=== PATIENT | female | born 1950 | race Caucasian/White ===

== ENCOUNTER 2022-06-01 08:48 | Inpatient (IN) | payer OTHER ==
[~2022-06-01] VITALS: Ht 154.9 cm; Wt 36.7 kg
[2022-06-01 08:52] VITALS: BP_SYST 128
[2022-06-01] MEDS ORDERED: methylPREDNISolone SOD SUCC/PF 62.5 MG/ML VIAL IVP ONE (09:00)
[2022-06-01] MEDS ORDERED: ALBUTEROL SULFATE 0.083% 2.5 MG/3 ML VIAL.NEB INH ONE ×2 (09:00→11:00)
[2022-06-01] MEDS ORDERED: DOXYCYCLINE HYCLATE 100 MG in D5W 100 ML IV ONE (09:00)
[2022-06-01] MEDS ORDERED: DOXYCYCLINE HYCLATE 100 MG VIAL IV ONE (09:10)
[2022-06-01 09:53] LABS: ANION GAP 2 (5-15); BASOPHILS # (AUTO) 0.1 K/uL (0.0-0.2); BASOPHILS % (AUTO) 1.2 % (0.0-2.0); CALCIUM 8.6 mg/dL (8.4-11.0); CHLORIDE 102 mmol/L (98-107); CREATININE 0.79 mg/dL (0.55-1.30); EOSINOPHILS # (AUTO) 0.1 K/uL (0.0-0.4); EOSINOPHILS % (AUTO) 1.5 % (0.0-4.0); GLUCOSE 86 mg/dL (70-99); HEMATOCRIT 39.7 % (36-48); LYMPHOCYTES # (AUTO) 1.5 K/uL (1.0-5.5); LYMPHOCYTES % (AUTO) 20.4 % (20.5-51.5); MEAN CORPUSCULAR VOLUME 95 fL (79.0-98.0); MONOCYTES # (AUTO) 0.6 K/uL (0.0-1.0); MONOCYTES % (AUTO) 8.6 % (1.7-9.3); NEUTROPHILS % (AUTO) 68.3 % (40.0-70.0); PLATELET COUNT (AUTO) 251 K/uL (130-430); POTASSIUM 3.6 mmol/L (3.5-5.1); RED CELL DISTRIBUTION WIDTH 16.1 % (9.0-15.0); UREA NITROGEN, BLOOD 12 mg/dL (8-21); WHITE BLOOD COUNT (AUTO) 7.3 K/uL (4.8-10.8)
[2022-06-01 10:01] LABS: GFR AFRICAN AMERICAN 93 mL/min (>90)
[2022-06-01 10:05] LABS: ALANINE AMINOTRANSFERASE 19 U/L (12-78); ALBUMIN 3.2 g/dL (3.4-4.8); ASPARTATE AMINOTRANSFERASE 23 U/L (10-37); TOTAL BILIRUBIN 0.5 mg/dL (0.0-1.0)
[2022-06-01] MEDS ORDERED: FUROSEMIDE 40 MG/4 ML VIAL IVP ONE (10:15)
[2022-06-01] MEDS ORDERED: FURO10VI27 IVP (13:44)
[2022-06-01] MEDS ORDERED: OXYCODONE/ACETAMINOPHEN 5-325 TABLET PO ONE (15:30)
[2022-06-01 15:57] VITALS: BP_SYST 129
[2022-06-01] MEDS ORDERED: HYDROcodone/ACETAMIN 5-325 MG TAB (NORCO/ VICODIN) PO PRN (16:30)
[2022-06-01] MEDS ORDERED: NALOXONE HCL 0.4 MG/ML AMP (NARCAN) IVP PRN ×2 (16:30)
[2022-06-01] MEDS ORDERED: ACETAMINOPHEN 325 MG TABLET PO PRN ×2 (16:30→17:00)
[2022-06-01] MEDS ORDERED: ONDANSETRON HCL 4 MG/2 ML VIAL IVP PRN (16:30)
[2022-06-01] MEDS: LORazepam 2 MG/ML VIAL IVP PRN (17:05)
[2022-06-01] MEDS: cefTRIAXone 1 GM IVPB PREMIX 50 ML IV SCH (18:05)
[2022-06-01] MEDS: AZITHROMYCIN 500 MG in NS 250 ML IV SCH (18:06)
[2022-06-01 18:48] VITALS: BP_SYST 129
[2022-06-01] MEDS: ALBUTEROL SULFATE 0.083% 2.5 MG/3 ML VIAL.NEB INH SCH ×2 (19:59→23:19)
[2022-06-01] MEDS: IPRATROPIUM BROM 0.5 MG/2.5 ML VIAL.NEB (ATROVENT) INH SCH ×2 (19:59→23:19)
[2022-06-01 20:00] VITALS: BP_SYST 118
[2022-06-01] MEDS: HYDROcodone/ACETAMIN 10-325 MG TAB PO PRN (20:57)
[2022-06-01] MEDS: METHYLPREDNISOLONE SOD SUCC 40 MG/ML VIAL IVP SCH (20:58)
[2022-06-01] MEDS: NORMAL SALINE 5 ML DISP.SYRIN IVF SCH (20:59)
[2022-06-01] MEDS ORDERED: NORMAL SALINE 5 ML DISP.SYRIN IVF SCH (22:00)
[2022-06-02] VITALS: BP_SYST 128
[2022-06-02] MEDS: ALBUTEROL SULFATE 0.083% 2.5 MG/3 ML VIAL.NEB INH SCH ×6 (03:18→23:13)
[2022-06-02] MEDS: IPRATROPIUM BROM 0.5 MG/2.5 ML VIAL.NEB (ATROVENT) INH SCH ×6 (03:18→23:13)
[2022-06-02 04:00] VITALS: BP_SYST 145
[2022-06-02] MEDS: HYDROcodone/ACETAMIN 10-325 MG TAB PO PRN ×2 (06:42→16:45)
[2022-06-02] MEDS: NORMAL SALINE 5 ML DISP.SYRIN IVF SCH ×3 (06:43→22:00)
[2022-06-02 08:00] VITALS: BP_SYST 131
[2022-06-02 08:16] LABS: BASOPHILS % (AUTO) 0.1 % (0.0-2.0); HEMATOCRIT 38.2 % (36-48); LYMPHOCYTES # (AUTO) 0.5 K/uL (1.0-5.5); LYMPHOCYTES % (AUTO) 8.2 % (20.5-51.5); MEAN CORPUSCULAR VOLUME 95 fL (79.0-98.0); MONOCYTES # (AUTO) 0.4 K/uL (0.0-1.0); MONOCYTES % (AUTO) 7.2 % (1.7-9.3); NEUTROPHILS # (AUTO) 4.9 K/uL (1.8-7.7); NEUTROPHILS % (AUTO) 84.5 % (40.0-70.0); PLATELET COUNT (AUTO) 260 K/uL (130-430); RED BLOOD CELL COUNT(AUTO) 4.04 MIL/uL (4.2-6.2); RED CELL DISTRIBUTION WIDTH 16.2 % (9.0-15.0); WHITE BLOOD COUNT (AUTO) 5.8 K/uL (4.8-10.8)
[2022-06-02 08:34] LABS: ALBUMIN 2.7 g/dL (3.4-4.8); CALCIUM 7.9 mg/dL (8.4-11.0); CREATININE 0.56 mg/dL (0.55-1.30); POTASSIUM 3.6 mmol/L (3.5-5.1); TOTAL BILIRUBIN 0.3 mg/dL (0.0-1.0)
[2022-06-02] MEDS: METHYLPREDNISOLONE SOD SUCC 40 MG/ML VIAL IVP SCH ×2 (09:02→21:07)
[2022-06-02] MEDS: LORazepam 2 MG/ML VIAL IVP PRN ×2 (09:04→14:01)
[2022-06-02] MEDS ORDERED: FUROSEMIDE 20 MG/2 ML VIAL IVP ONE (10:00)
[2022-06-02 12:00] VITALS: BP_SYST 158
[2022-06-02 16:00] VITALS: BP_SYST 128
[2022-06-02] MEDS: AZITHROMYCIN 500 MG in NS 250 ML IV SCH (16:59)
[2022-06-02] MEDS: cefTRIAXone 1 GM IVPB PREMIX 50 ML IV SCH (16:59)
[2022-06-02 21:05] VITALS: BP_SYST 135
[2022-06-03] MEDS: IPRATROPIUM BROM 0.5 MG/2.5 ML VIAL.NEB (ATROVENT) INH SCH ×6 (03:00→23:00)
[2022-06-03] MEDS: ALBUTEROL SULFATE 0.083% 2.5 MG/3 ML VIAL.NEB INH SCH ×6 (03:00→23:00)
[2022-06-03 04:39] VITALS: BP_SYST 148
[2022-06-03] MEDS: HYDROcodone/ACETAMIN 10-325 MG TAB PO PRN ×2 (04:50→21:01)
[2022-06-03] MEDS: NORMAL SALINE 5 ML DISP.SYRIN IVF SCH ×3 (06:00→21:01)
[2022-06-03 07:31] LABS: BASOPHILS % (AUTO) 0.2 % (0.0-2.0); HEMATOCRIT 38.7 % (36-48); LYMPHOCYTES # (AUTO) 0.8 K/uL (1.0-5.5); LYMPHOCYTES % (AUTO) 8.5 % (20.5-51.5); MEAN CORPUSCULAR VOLUME 95 fL (79.0-98.0); MONOCYTES # (AUTO) 0.6 K/uL (0.0-1.0); NEUTROPHILS # (AUTO) 7.9 K/uL (1.8-7.7); NEUTROPHILS % (AUTO) 85.3 % (40.0-70.0); PLATELET COUNT (AUTO) 276 K/uL (130-430); RED BLOOD CELL COUNT(AUTO) 4.07 MIL/uL (4.2-6.2); WHITE BLOOD COUNT (AUTO) 9.2 K/uL (4.8-10.8)
[2022-06-03 07:57] LABS: ANION GAP 4 (5-15); CALCIUM 8.3 mg/dL (8.4-11.0); CHLORIDE 102 mmol/L (98-107); CREATININE 0.71 mg/dL (0.55-1.30); GLUCOSE 94 mg/dL (70-99); POTASSIUM 3.7 mmol/L (3.5-5.1); UREA NITROGEN, BLOOD 16 mg/dL (8-21)
[2022-06-03 08:00] VITALS: BP_SYST 136
[2022-06-03] MEDS: LORazepam 2 MG/ML VIAL IVP PRN (08:11)
[2022-06-03] MEDS: FUROSEMIDE 20 MG/2 ML VIAL IVP SCH (08:16)
[2022-06-03] MEDS: METHYLPREDNISOLONE SOD SUCC 40 MG/ML VIAL IVP SCH ×2 (08:17→21:00)
[2022-06-03 08:48] LABS: C-REACTIVE PROTEIN QUANT < 0.2 mg/dL (0-0.5); GFR AFRICAN AMERICAN 105 mL/min (>90)
[2022-06-03 09:03] LABS: ERYTHROCYTE SEDIMENTATION RATE 2 MM/HR (0-20)
[2022-06-03 12:00] VITALS: BP_SYST 137
[2022-06-03] MEDS ORDERED: DOCUSATE SODIUM 100 MG CAPSULE PO ONE (12:00)
[2022-06-03 16:00] VITALS: BP_SYST 129
[2022-06-03] MEDS: cefTRIAXone 1 GM IVPB PREMIX 50 ML IV SCH (17:26)
[2022-06-03] MEDS: AZITHROMYCIN 500 MG in NS 250 ML IV SCH (17:26)
[2022-06-03 19:59] VITALS: BP_SYST 130
[2022-06-03] MEDS: DOCUSATE SODIUM 100 MG CAPSULE PO SCH (21:01)
[2022-06-04 03:01] VITALS: BP_SYST 145
[2022-06-04] MEDS: HYDROcodone/ACETAMIN 10-325 MG TAB PO PRN ×4 (03:07→21:29)
[2022-06-04] MEDS: ALBUTEROL SULFATE 0.083% 2.5 MG/3 ML VIAL.NEB INH SCH ×6 (03:35→23:09)
[2022-06-04] MEDS: IPRATROPIUM BROM 0.5 MG/2.5 ML VIAL.NEB (ATROVENT) INH SCH ×6 (03:36→23:09)
[2022-06-04] MEDS: NORMAL SALINE 5 ML DISP.SYRIN IVF SCH ×3 (07:12→21:30)
[2022-06-04 07:27] LABS: BASOPHILS % (AUTO) 0.2 % (0.0-2.0); HEMATOCRIT 39.6 % (36-48); HEMOGLOBIN 13.1 g/dL (12.0-16.0); LYMPHOCYTES # (AUTO) 0.8 K/uL (1.0-5.5); LYMPHOCYTES % (AUTO) 8.5 % (20.5-51.5); MEAN CORPUSCULAR HEMOGLOBIN 32 pg (27-31); MEAN CORPUSCULAR HGB CONC 33 % (32-36); MEAN CORPUSCULAR VOLUME 95 fL (79.0-98.0); MONOCYTES # (AUTO) 0.6 K/uL (0.0-1.0); NEUTROPHILS # (AUTO) 8.1 K/uL (1.8-7.7); NEUTROPHILS % (AUTO) 85.3 % (40.0-70.0); PLATELET COUNT (AUTO) 249 K/uL (130-430); RED BLOOD CELL COUNT(AUTO) 4.17 MIL/uL (4.2-6.2); WHITE BLOOD COUNT (AUTO) 9.5 K/uL (4.8-10.8)
[2022-06-04 08:28] VITALS: BP_SYST 147
[2022-06-04] MEDS: METHYLPREDNISOLONE SOD SUCC 40 MG/ML VIAL IVP SCH ×2 (08:30→20:20)
[2022-06-04] MEDS: FUROSEMIDE 20 MG/2 ML VIAL IVP SCH (08:31)
[2022-06-04] MEDS: DOCUSATE SODIUM 100 MG CAPSULE PO SCH ×2 (08:31→20:20)
[2022-06-04] MEDS ORDERED: IPRATROPIUM/ALBUTEROL SULFATE 3 ML AMPUL.NEB (DUONEB) ONE (09:27)
[2022-06-04 09:31] LABS: ANION GAP 5 (5-15); CALCIUM 8.5 mg/dL (8.4-11.0); CHLORIDE 105 mmol/L (98-107); CREATININE 1.03 mg/dL (0.55-1.30); GFR AFRICAN AMERICAN 68 mL/min (>90); GLUCOSE 117 mg/dL (70-99); POTASSIUM 4.6 mmol/L (3.5-5.1); UREA NITROGEN, BLOOD 24 mg/dL (8-21)
[2022-06-04 09:51] LABS: C-REACTIVE PROTEIN QUANT < 0.2 mg/dL (0-0.5)
[2022-06-04] MEDS: LORazepam 2 MG/ML VIAL IVP PRN (10:39)
[2022-06-04 11:19] LABS: ERYTHROCYTE SEDIMENTATION RATE 2 MM/HR (0-20)
[2022-06-04 12:00] VITALS: BP_SYST 117
[2022-06-04 16:17] VITALS: BP_SYST 125
[2022-06-04] MEDS: cefTRIAXone 1 GM IVPB PREMIX 50 ML IV SCH (17:24)
[2022-06-04] MEDS: AZITHROMYCIN 500 MG in NS 250 ML IV SCH (18:10)
[2022-06-04 20:00] VITALS: BP_SYST 138
[2022-06-05] VITALS: BP_SYST 128
[2022-06-05] MEDS: LORazepam 2 MG/ML VIAL IVP PRN ×2 (00:15→06:07)
[2022-06-05] MEDS: ALBUTEROL SULFATE 0.083% 2.5 MG/3 ML VIAL.NEB INH SCH ×4 (03:28→14:31)
[2022-06-05] MEDS: IPRATROPIUM BROM 0.5 MG/2.5 ML VIAL.NEB (ATROVENT) INH SCH ×4 (03:28→14:31)
[2022-06-05] MEDS: NORMAL SALINE 5 ML DISP.SYRIN IVF SCH ×2 (06:08→14:15)
[2022-06-05 07:19] LABS: BASOPHILS # (AUTO) 0.1 K/uL (0.0-0.2); BASOPHILS % (AUTO) 0.5 % (0.0-2.0); EOSINOPHILS % (AUTO) 0.1 % (0.0-4.0); HEMATOCRIT 39.4 % (36-48); HEMOGLOBIN 13.1 g/dL (12.0-16.0); LYMPHOCYTES # (AUTO) 1.2 K/uL (1.0-5.5); LYMPHOCYTES % (AUTO) 9.6 % (20.5-51.5); MEAN CORPUSCULAR HEMOGLOBIN 31 pg (27-31); MEAN CORPUSCULAR HGB CONC 33 % (32-36); MEAN CORPUSCULAR VOLUME 94 fL (79.0-98.0); MONOCYTES # (AUTO) 0.8 K/uL (0.0-1.0); MONOCYTES % (AUTO) 6.6 % (1.7-9.3); NEUTROPHILS # (AUTO) 10.4 K/uL (1.8-7.7); NEUTROPHILS % (AUTO) 83.2 % (40.0-70.0); PLATELET COUNT (AUTO) 235 K/uL (130-430); RED BLOOD CELL COUNT(AUTO) 4.17 MIL/uL (4.2-6.2); WHITE BLOOD COUNT (AUTO) 12.5 K/uL (4.8-10.8)
[2022-06-05 07:46] LABS: C-REACTIVE PROTEIN QUANT 2.9 mg/dL (0-0.5); CALCIUM 8.2 mg/dL (8.4-11.0); CREATININE 0.59 mg/dL (0.55-1.30); POTASSIUM 3.5 mmol/L (3.5-5.1)
[2022-06-05] MEDS ORDERED: predniSONE 20 MG TABLET PO ONE (10:15)
[2022-06-05 10:28] VITALS: BP_SYST 103
[2022-06-05] MEDS: DOCUSATE SODIUM 100 MG CAPSULE PO SCH (10:31)
[2022-06-05] MEDS: FUROSEMIDE 20 MG/2 ML VIAL IVP SCH (10:32)
[2022-06-05 11:46] VITALS: BP_SYST 98
[2022-06-05 11:47] LABS: ERYTHROCYTE SEDIMENTATION RATE 4 MM/HR (0-20)
[2022-06-05 12:29] VITALS: BP_SYST 122
[2022-06-05] MEDS ORDERED: DOCU-144 PO (14:36)
[2022-06-05] MEDS ORDERED: DOXY100T2 PO (14:36)
[2022-06-05] MEDS ORDERED: PRED20TA PO (14:40)
[2022-06-05] MEDS ORDERED: ALBMDI INH (14:40)
[2022-06-05] MEDS ORDERED: PRED10TA PO (14:40)
[2022-06-05 15:28] VITALS: BP_SYST 120
[2022-06-05 15:43] VITALS: BP_SYST 125
[2022-06-05] MEDS ORDERED: predniSONE 20 MG TABLET PO SCH (21:00)
== END 2022-06-05 17:55 | disposition home health service (06) | DRG 871 ==
LOC: SED 08:48 → STU 13:33
PROVIDERS: ADMIT Preventive Medicine Preventive Medicine/Occupational Environmental Medicine; ATTEND Preventive Medicine Preventive Medicine/Occupational Environmental Medicine
DX: A41.9 Sepsis, unspecified organism (principal); J18.9 Pneumonia, unspecified organism; J96.21 Acute and chronic respiratory failure with hypoxia; J44.1 Chronic obstructive pulmonary disease with (acute) exacerbation; J44.0 Chronic obstructive pulmonary disease with (acute) lower respiratory infection; E83.52 Hypercalcemia; R53.81 Other malaise; R73.9 Hyperglycemia, unspecified; I11.0 Hypertensive heart disease with heart failure; I50.9 Heart failure, unspecified; Z20.822 Contact with and (suspected) exposure to COVID-19
CPT/HCPCS: 36415; 71045; 80048; 80053; 83735; 83880; 84100; 84484; 85025; 85651-TC; 86140; 87040; 93005; 93306; 94640; 94760; 96374; 96375; 97116-GP; 97530-GP; 99285; G0378; J0456; J0696; J1030; J1940; J2060; J2930; J3490; J7050; J7512; J7613